=== PATIENT | female | born 1970 | race Caucasian/White ===

== ENCOUNTER 2024-01-05 06:00 | Day surgery (SDC) | payer OTHER ==
[2024-01-05] MEDS ORDERED: fentaNYL 100 MCG/2 ML SDV IV ONE (06:01)
[2024-01-05] MEDS ORDERED: Midazolam 1 MG/ML 2 ML SDV IV ONE (06:01)
[2024-01-05] MEDS ORDERED: Midazolam 1 MG/ML 2 ML SDV ONE (06:20)
[2024-01-05] MEDS ORDERED: fentaNYL 100 MCG/2 ML SDV ONE (06:21)
[2024-01-05] MEDS: Dextrose 5%-0.45% NaCl 1,000 ML IV SCH (06:39)
[2024-01-05] MEDS: fentaNYL 100 MCG/2 ML SDV IV ONE ×5 (07:35→07:53)
[2024-01-05] MEDS: Midazolam 1 MG/ML 2 ML SDV IV ONE ×6 (07:36→07:45)
== END 2024-01-05 09:25 | disposition home or self-care (01) ==
LOC: DL.ENDO 06:00
PROVIDERS: ATTEND Internal Medicine Gastroenterology
DX: K64.8 Other hemorrhoids (principal); K59.09 Other constipation; F32.A Depression, unspecified; F41.1 Generalized anxiety disorder
CPT/HCPCS: 45378; J2250; J3010; J7042